=== PATIENT | male | born 2000 | race Two or more races ===

== ENCOUNTER 2024-04-29 13:06 | Emergency (ER) | payer MEDICAID, OTHER ==
[~2024-04-29] VITALS: Ht 167.6 cm; Wt 90.9 kg
[2024-04-29] MEDS ORDERED: ACET-2247 PO (13:13)
[2024-04-29 13:21] VITALS: BP 104/55; PULSE 114; RESP 19; TEMP 98.9; O2SAT 100
[2024-04-29] MEDS: IBUPROFEN 600 MG TABLET PO ONE (13:32)
[2024-04-29] MEDS: GuaiFENesin/D-METHORPHAN [SUGAR-FREE] 200-20MG/10 ML SYRUP UDCUP PO ONE (13:33)
[2024-04-29] MEDS: ACETAMINOPHEN 500 MG TABLET PO ONE (13:33)
[2024-04-29 13:35] LABS: COVID AG,FIA SOURCE NASAL SWAB
[2024-04-29 14:06] LABS: SARS-COV2 (COVID) ANTIGEN,FIA Negative (Negative)
[2024-04-29 14:07] LABS: INFLUENZA TYPE B NEGATIVE FOR TYPE B (NEGATIVE)
[2024-04-29 15:01] LABS: INFLUENZA TYPE A POSITIVE FOR TYPE A (NEGATIVE)
[2024-04-29] MEDS ORDERED: GUAIFDM PO (15:05)
[2024-04-29] MEDS ORDERED: IBUP-1554 PO (15:05)
[2024-04-29] MEDS ORDERED: ACET-66 PO (15:05)
== END 2024-04-29 15:29 | disposition home or self-care (01) ==
LOC: EMS 13:06
DX: J06.9 Acute upper respiratory infection, unspecified (principal); Z20.822 Contact with and (suspected) exposure to COVID-19
CPT/HCPCS: 87804; 99284; Z7502; Z7610